=== PATIENT | male | born 1955 | race Caucasian/White ===

== ENCOUNTER → 2018-08-06 | Outpatient (CLI) | payer OTHER ==
--- NOTE | 2018-08-06 17:24 | KCIC ---
Right lower extremity arterial Doppler ultrasound HISTORY: Decreased right pedal pulses, pain upon exertion. TECHNIQUE: Color Doppler, grayscale and duplex analysis performed of the right lower extremity arterial structures, from the common femoral artery through the runoff vessels. COMPARISON: None are available Findings: All velocity measurements are in centimeters per second. Severe plaque is identified. Triphasic to biphasic waveforms are identified from the common femoral through the mid superficial femoral artery. Monophasic waveform at the distal superficial femoral artery and popliteal artery, and through the visualized runoff vessels. Right common femoral artery velocity is 139. Proximal, mid and distal superficial femoral artery velocities are 101, 55 and 39 respectively. Increased popliteal artery velocity of 193. Arterial velocities below the popliteal artery range from 24-33. Numerous small collateral vessels were documented around the popliteal artery, where there is severe atherosclerotic plaque. IMPRESSION: Severe atherosclerotic disease. Findings are compatible with a high-grade or critical arterial stenosis at the popliteal and distal superficial femoral artery. Electronically signed by: Flip Scott MD (08/06/2018 5:20 PM) [facility]
== END | disposition home or self-care (01) ==
LOC: KCIC US 11:56
PROVIDERS: ATTEND Nurse Practitioner Family
DX: I70.201 Unspecified atherosclerosis of native arteries of extremities, right leg (principal)
CPT/HCPCS: 93926